=== PATIENT | female | born 1950 | race Two or more races ===

== ENCOUNTER 2023-01-18 11:23 | Outpatient (CLI) | payer OTHER | END 2023-01-18 11:29 | disposition home or self-care (01) | LOC: RAD 11:23 | PROVIDERS: ATTEND Orthopaedic Surgery | DX: M25.571 Pain in right ankle and joints of right foot (principal) ==

== ENCOUNTER 2023-01-25 08:22 | Outpatient (CLI) | payer OTHER | END 2023-01-25 08:27 | disposition home or self-care (01) | LOC: RAD 08:22 | PROVIDERS: ATTEND Orthopaedic Surgery | DX: M25.571 Pain in right ankle and joints of right foot (principal) ==

== ENCOUNTER 2023-03-20 12:18 | Outpatient (CLI) | payer OTHER | END 2023-03-20 12:27 | disposition home or self-care (01) | LOC: RAD 12:18 | PROVIDERS: ATTEND Orthopaedic Surgery | DX: M25.571 Pain in right ankle and joints of right foot (principal); M79.671 Pain in right foot ==

== ENCOUNTER 2023-07-10 09:09 | Outpatient (CLI) | payer OTHER | END 2023-07-10 09:10 | disposition home or self-care (01) | LOC: LAB 09:09 | PROVIDERS: ATTEND Orthopaedic Surgery | DX: E55.9 Vitamin D deficiency, unspecified (principal); M85.9 Disorder of bone density and structure, unspecified; E56.1 Deficiency of vitamin K ==